=== PATIENT | female | born 1955 | race Caucasian/White ===

== ENCOUNTER → 2018-03-13 | Outpatient (CLI) | payer BC ==
[~2018-03-13] MED LIST: VICODIN 5/500 505 MG PO; ZOCOR20 MG
== END | disposition home or self-care (01) ==
LOC: MAMMO 08:17
DX: R92.1 Mammographic calcification found on diagnostic imaging of breast (principal)

== ENCOUNTER → 2019-02-18 | Outpatient (CLI) | payer BC | END | disposition home or self-care (01) | LOC: MAMMO 02:23 | DX: N60.19 Diffuse cystic mastopathy of unspecified breast (principal); M81.0 Age-related osteoporosis without current pathological fracture; N95.1 Menopausal and female climacteric states; M85.89 Other specified disorders of bone density and structure, multiple sites; Z85.3 Personal history of malignant neoplasm of breast ==

== ENCOUNTER → 2020-01-19 | Outpatient (CLI) | payer BC, MEDICARE ==
[2020-01-19 11:48] LABS: BASO % 0.7 % (0.0-1.0); EOS # 0.5 10*3/uL (0.0-0.4); EOS % 8.3 % (1.0-4.0); HEMATOCRIT 39.3 % (37.0-47.0); HEMOGLOBIN 13.1 g/dl (12.0-16.0); LYMPH # 1.7 10*3/uL (1.3-4.4); LYMPH % 30.7 % (27.0-41.0); MEAN CELL VOLUME 90.6 fl (81.0-99.0); MEAN CORPUSCULAR HGB 30.2 pg (27.0-31.0); MEAN CORPUSCULAR HGB CONC 33.3 g/dl (33.0-37.0); MONO # 0.4 10*3/uL (0.1-1.0); NEUT # 2.8 10*3/uL (2.3-7.9); NEUT % 52.1 % (47.0-73.0); PLATELET COUNT AUTOMATED 237 10*3/uL (130-400); RED BLOOD COUNT 4.34 10*6/uL (4.10-5.10); RED CELL DISTRI WIDTH 12.8 % (0-14.5); RETICULOCYTE % 1.58 % (0.50-2.50); WHITE BLOOD COUNT 5.4 10*3/uL (4.8-10.8)
[2020-01-19 12:00] LABS: BILIRUBIN NEGATIVE (NEGATIVE); BLOOD NEGATIVE (NEGATIVE); CLARITY SL CLOUDY (CLEAR); COLOR YELLOW (YELLOW); GLUCOSE NEGATIVE (NEGATIVE); KETONE NEGATIVE (NEGATIVE); NITRITE NEGATIVE (NEGATIVE); PH 6.5 (5.0-9.0); UROBILINOGEN 0.2 E.U./dl (0.2-1.0)
[2020-01-19 12:01] LABS: LEUKO ESTERASE 2+ (NEGATIVE)
[2020-01-19 12:29] LABS: CHLORIDE 106 mmol/L (98-107); POTASSIUM 4.3 mmol/L (3.5-5.1); SODIUM 137 mmol/L (136-145)
[2020-01-19 12:42] LABS: FERRITIN 82.2 ng/mL (10.0-291.0)
[2020-01-19 12:45] LABS: ALBUMIN 3.5 gm/dl (3.1-4.5); ALKALINE PHOSPHATASE 79 U/L (45-117); BUN 21 mg/dl (7-24); CHOLESTEROL 160 mg/dL (<200); CPK 38 U/L (26-192); CREATININE 1.01 mg/dL (0.55-1.02); HDL CHOLESTEROL 58 mg/dl (40-60); IRON 77 ug/dL (50-170); LDL CHOLESTEROL 81 mg/dL (9-159); SGOT/AST 12 IU/L (3-35); SGPT/ALT 22 U/L (12-78); T3 UPTAKE 37 % (31-39); THYROXINE (T4) TOTAL 8.9 ug/dl (4.8-13.9); TOTAL IRON BINDING CAPACITY 279 ug/dl (250-450); TOTAL PROTEIN 7.4 gm/dL (6.4-8.2); TRIGLYCERIDES 105 mg/dl (<150); VLDL CHOLESTEROL 21 mg/dL (6-40)
[2020-01-19 12:46] LABS: GAMMA GLUTAMYL TRANSPEPTIDASE < 3 U/L (5-55)
[2020-01-19 13:36] LABS: BACTERIA TRACE
== END | disposition home or self-care (01) ==
LOC: LAB 11:11
PROVIDERS: Family Medicine
DX: E55.9 Vitamin D deficiency, unspecified (principal); R79.89 Other specified abnormal findings of blood chemistry; R53.83 Other fatigue

== ENCOUNTER → 2020-03-29 | Outpatient (CLI) | payer BC | END | disposition home or self-care (01) | LOC: MAMMO 03-23 13:00 | DX: N60.19 Diffuse cystic mastopathy of unspecified breast (principal); Z85.3 Personal history of malignant neoplasm of breast ==

== ENCOUNTER → 2021-06-16 | Outpatient (CLI) | payer BC | END | disposition home or self-care (01) | LOC: MAMMO 05-19 09:00 | PROVIDERS: ATTEND Family Medicine | DX: N64.89 Other specified disorders of breast (principal); Z85.3 Personal history of malignant neoplasm of breast ==

== ENCOUNTER 2021-10-05 10:15 | Emergency (ER) | payer BC ==
[~2021-10-05] VITALS: Ht 154.9 cm; Wt 63.5 kg
[2021-10-05] MEDS ORDERED: ZESTRIL5 MG PO (10:26)
[2021-10-05 10:27] VITALS: BP 150/87
== END 2021-10-05 12:30 | disposition home or self-care (01) ==
LOC: ED 10:15
DX: S60.042A Contusion of left ring finger without damage to nail, initial encounter (principal); Z88.0 Allergy status to penicillin; Z88.8 Allergy status to other drugs, medicaments and biological substances; Z79.899 Other long term (current) drug therapy; W01.0XXA Fall on same level from slipping, tripping and stumbling without subsequent striking against object, initial encounter; Y93.89 Activity, other specified; Y92.89 Other specified places as the place of occurrence of the external cause; Y99.8 Other external cause status

== ENCOUNTER → 2022-07-06 | Outpatient (CLI) | payer BC ==
[~2022-07-06] MED LIST changes: +ZESTRIL5 MG PO
== END | disposition home or self-care (01) ==
LOC: MAMMO 09:32
PROVIDERS: ATTEND Family Medicine
DX: R92.1 Mammographic calcification found on diagnostic imaging of breast (principal); N63.21 Unspecified lump in the left breast, upper outer quadrant; N64.89 Other specified disorders of breast

== ENCOUNTER → 2022-10-16 | Outpatient (CLI) | payer BC | END | disposition home or self-care (01) | LOC: RAD 09:27 | PROVIDERS: ATTEND Family Medicine | DX: Z13.820 Encounter for screening for osteoporosis (principal); M85.88 Other specified disorders of bone density and structure, other site ==

== ENCOUNTER 2023-08-13 00:07 | Emergency (ER) | payer BC ==
[~2023-08-13] VITALS: Ht 154.9 cm; Wt 65.8 kg
[2023-08-13 00:24] VITALS: BP 156/87
[2023-08-13] MEDS ORDERED: PREDNISONE20 M1 PO (03:34)
== END 2023-08-13 03:44 | disposition home or self-care (01) ==
LOC: ED 00:07
DX: M77.8 Other enthesopathies, not elsewhere classified (principal); M25.511 Pain in right shoulder; Z88.8 Allergy status to other drugs, medicaments and biological substances; Z88.0 Allergy status to penicillin; Z79.899 Other long term (current) drug therapy; Z98.51 Tubal ligation status

== ENCOUNTER → 2023-08-16 | Outpatient (CLI) | payer BC ==
[~2023-08-16] MED LIST changes: +PREDNISONE20 M1 PO
== END | disposition home or self-care (01) ==
LOC: MAMMO 09:37
PROVIDERS: ATTEND Nurse Practitioner Family
DX: Z85.3 Personal history of malignant neoplasm of breast (principal)

== ENCOUNTER → 2024-08-20 | Outpatient (CLI) | payer OTHER | END | disposition home or self-care (01) | LOC: MAMMO 09:00 | PROVIDERS: ATTEND Nurse Practitioner Family | DX: Z85.3 Personal history of malignant neoplasm of breast (principal) ==

== ENCOUNTER → 2024-09-19 | Outpatient (CLI) | payer OTHER | END | disposition home or self-care (01) | LOC: CT 00:29 | PROVIDERS: ATTEND Nurse Practitioner Family | DX: Z12.2 Encounter for screening for malignant neoplasm of respiratory organs (principal); I25.10 Atherosclerotic heart disease of native coronary artery without angina pectoris; J43.9 Emphysema, unspecified; K76.89 Other specified diseases of liver; Z87.891 Personal history of nicotine dependence; Z85.3 Personal history of malignant neoplasm of breast ==

== ENCOUNTER → 2025-03-20 | Outpatient (CLI) | payer OTHER | END | disposition home or self-care (01) | LOC: RAD 08:44 | PROVIDERS: ATTEND Nurse Practitioner Family | DX: M81.0 Age-related osteoporosis without current pathological fracture (principal); M85.9 Disorder of bone density and structure, unspecified; Z00.00 Encounter for general adult medical examination without abnormal findings ==

== ENCOUNTER → 2025-08-17 | Outpatient (CLI) | payer OTHER ==
[2025-08-17 17:09] LABS: BASO # 0.1 10*3/uL (0.0-0.1); BASO % 1.4 % (0.0-1.0); EOS # 0.2 10*3/uL (0.0-0.4); EOS % 3.3 % (1.0-4.0); MEAN CELL VOLUME 92.8 fl (81.0-99.0); MEAN CORPUSCULAR HGB 30.2 pg (27.0-31.0); MEAN PLATELET VOLUME 11.2 fl (9.6-12.3); MONO # 0.6 10*3/uL (0.1-1.0); MONO % 10.3 % (3.0-9.0); NEUT # 3.0 10*3/uL (2.3-7.9); NEUT % 52.0 % (47.0-73.0); NUCLEATED RED BLOOD CELL 0.0 % (0.0-0.0); NUCLEATED RED BLOOD CELL 0.0 10*3/uL (0.0-0.0); PLATELET COUNT AUTOMATED 238 10*3/uL (130-400); RED CELL DISTRI WIDTH 12.8 % (0-14.5)
[2025-08-17 17:38] LABS: BUN 21.0 mg/dl (9-23); LDL CHOLESTEROL 92.0 mg/dL (9-159); SGPT/ALT 17.0 U/L (5-49)
== END | disposition home or self-care (01) ==
LOC: RHCWE 08:55
PROVIDERS: ATTEND Nurse Practitioner Family
DX: I10 Essential (primary) hypertension (principal); E78.2 Mixed hyperlipidemia; E55.9 Vitamin D deficiency, unspecified; E89.0 Postprocedural hypothyroidism; Z76.89 Persons encountering health services in other specified circumstances

== ENCOUNTER → 2025-08-26 | Outpatient (CLI) | payer OTHER | END | disposition home or self-care (01) | LOC: MAMMO 00:53 | PROVIDERS: ATTEND Nurse Practitioner Family | DX: R92.323 Mammographic fibroglandular density, bilateral breasts (principal) ==

== ENCOUNTER → 2025-10-05 | Outpatient (CLI) | payer OTHER | END | disposition home or self-care (01) | LOC: US 01:30 | PROVIDERS: ATTEND Internal Medicine Endocrinology, Diabetes & Metabolism | DX: E04.2 Nontoxic multinodular goiter (principal); E89.0 Postprocedural hypothyroidism ==